=== PATIENT | female | born 1985 | race Hispanic/Latino ===

== ENCOUNTER 2017-09-18 01:30 | Emergency (ER) | payer SELFPAY ==
[2017-09-18 02:20] LABS: Pregnancy Test - Urine (BHCG) Negative (Negative); Pregu Control Background? CLEAR/WHITE (CLR/WHITE); Pregu Control Bar Appear? YES (CONTROL BAR); Specific Gravity 1.025 (1.002-1.036)
[2017-09-18 02:23] LABS: Bilirubin Negative (Negative); Blood, Urine Moderate (Negative); Clarity Hazy (Clear); Glucose, Urine (Dipstick) Negative (Negative); Leukocyte Small (Negative); Nitrite Negative (Negative); Protein, Urine (Dipstick) 30 mg/dL (Neg-Trace); Specific Gravity, Urine 1.025 (1.005-1.030)
[2017-09-18 02:31] LABS: Bacteria/HPF 2+ HPF (None Seen); Crystals/HPF 1+ AMORPH URATES HPF (Negative); RBC/HPF 0-3 HPF (0-3); Squamous Epithelial 0-3 HPF (0-3)
[2017-09-18 02:32] LABS: Other Microscopic Description 1+ MUCUS
[2017-09-18] MEDS ORDERED: traMADol HCl 50 MG TAB ONE (04:14)
[2017-09-18] MEDS ORDERED: Sulfameth/Trimethoprim DS 800-160mg TAB ONE (04:15)
[2017-09-18] MEDS ORDERED: Ibuprofen 800 MG TAB ONE (04:15)
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
== END 2017-09-18 05:30 | disposition home or self-care (01) ==
LOC: BURERS 01:30
DX: S61.215A Laceration without foreign body of left ring finger without damage to nail, initial encounter (principal); S61.011A Laceration without foreign body of right thumb without damage to nail, initial encounter; S00.83XA Contusion of other part of head, initial encounter; S00.12XA Contusion of left eyelid and periocular area, initial encounter; S00.11XA Contusion of right eyelid and periocular area, initial encounter; S20.02XA Contusion of left breast, initial encounter; S80.00XA Contusion of unspecified knee, initial encounter; S40.011A Contusion of right shoulder, initial encounter; S30.0XXA Contusion of lower back and pelvis, initial encounter; S10.93XA Contusion of unspecified part of neck, initial encounter; Y04.2XXA Assault by strike against or bumped into by another person, initial encounter
CPT/HCPCS: 51701; 70450; 70486; 81003; 81015; 81025; 87077; 87086; 87186